=== PATIENT | female | born 1990 | race Caucasian/White ===

== ENCOUNTER → 2016-10-02 | Outpatient (CLI) | payer BC ==
[~2016-10-02] MED LIST: CEPH500C3 PO; DARV PO; LEVO.1 PO
== END ==
LOC: HPND 10:43
PROVIDERS: ATTEND Obstetrics & Gynecology
DX: O99.281 Endocrine, nutritional and metabolic diseases complicating pregnancy, first trimester (principal); Z36 Encounter for antenatal screening of mother; Z3A.12 12 weeks gestation of pregnancy
CPT/HCPCS: 36416; 76813

== ENCOUNTER 2017-04-04 13:59 | Inpatient (IN) | payer BC ==
[2017-04-04] VITALS (11 sets, daily range): BP systolic 126–140; BP diastolic 61–88; PULSE 79–98; RESP 16–18
[~2017-04-04] VITALS: Ht 172.7 cm; Wt 75.0 kg
[2017-04-04] MEDS ORDERED: LACTATED RINGER'S 1000 ML INJ 1,000 ML IV SCH (14:36)
[2017-04-04] MEDS ORDERED: LACTATED RINGER'S 1000 ML INJ 1,000 ML IV PRN (14:36)
[2017-04-04] MEDS ORDERED: ONDANSETRON HCL 4 MG/2 ML VIAL IV PUSH PRN (14:45)
[2017-04-04] MEDS ORDERED: MINERAL OIL 10 ML VIAL TOPICAL PRN (14:45)
[2017-04-04] MEDS ORDERED: SODIUM CHLORID 0.9% 500 ML INJ 500 ML IV PRN (14:45)
[2017-04-04] MEDS ORDERED: LIDOCAINE HCL 1% 50 ML VIAL INFIL PRN (14:45)
[2017-04-04] MEDS ORDERED: LIDOCAINE HCL 1% 50 ML VIAL I-DERMAL PRN (14:45)
[2017-04-04] MEDS ORDERED: OXYTOCIN 30 UNITS-500ML PREMIX 500 ML IV SCH (14:45)
[2017-04-04] MEDS ORDERED: CITRIC ACID-SODIUM CITRATE LIQ 30 ML UDC PO SCH (14:45)
[2017-04-04] MEDS ORDERED: OXYTOCIN 30 UNITS-500ML PREMIX 500 ML IV ONE (14:45)
--- NOTE | 2017-04-04 14:52 | PD ---
HPI Chief Complaint water broke, contractions Date Seen: Apr 04, 2017 Travel History International Travel<30 Days: No Contact w/Intl Traveler<30Days: No Known Affected Area: No History of Present Illness HPI Patient is a 26 y/o at 39/1 weeks gestation that presents to the [facility] ED after her water broke and complains of contractions that are occurring every 2-3 minutes. She states that her water broke around 12:50 AM and she saw clear fluid. She also lost her mucous plug prior to that. Her last ultrasound was on Friday and her baby was about 7 pounds in weight and her down with an anterior placenta. She has not had any problems during this . She desires an epidural. Notably, she is GBS negative. They are having a boy. Weeks Gestation: 39 Para: 0 : 1 History Past Medical History Narrative Medical Hypothyroidism on levothyroxine 150 g daily Obstetric History Obstetric History Past Surgical History Narrative Surgical -Lymph node excision / cat scratch disease -Breast augmentation Family History Narrative Family History Dad had an [place] Social History Alcohol Use: No Tobacco Use: No Substance Abuse: No Allergies-Medications (Allergen,Severity, Reaction): Coded Allergies: No Known Allergies (Verified , 07/13/07) Home Meds Active Scripts Synthroid 100 mcg (Synthroid 100 mcg) 100 Mcg Tab, 125 MCG PO DAILY, #90 0 Refills Prov:HARRISON AGUDELO M.D. R4 09/20/10 Propoxyphene-N/Acetaminophen (Darvocet-N 100) Tab, 1 TAB PO Q6HPRN, #12 0 Refills FOR PAIN Prov:Grayson Sheppard MD 07/26/08 Cephalexin (Keflex) 500 Mg Cap, 500 MG PO QID for 10 Days, 0 Refills Prov:Geoffrey Childress MD 07/13/07 Review of Systems Except as stated in HPI: all other systems reviewed are Neg General / Constitutional: No: Chills Eyes: No: Blurred Vision, Visual changes HENT: No: Headaches Cardiovascular: No: Chest Pain or Discomfort Respiratory: No: Cough, Short of Breath Gastrointestinal: Diarrhea (3 episodes this morning which is unusual), No: Nausea, Vomiting Genitourinary: No: Dysuria, Discharge, Vaginal Bleeding Musculoskeletal: No: Weakness Skin: No Rash Neurologic: No: Weakness Physical Exam Vital Signs Date Time Temp Pulse Resp B/P (MAP) Pulse Ox O2 Delivery O2 Flow Rate FiO2 04/04/17 14:38 92 140/88 (105) Narrative GENERAL: Well-nourished, well-developed patient. SKIN: Warm and dry. HEAD: Normocephalic and atraumatic. EYES: No scleral icterus. No injection or drainage. ENT: No nasal drainage noted. Mucous membranes pink. Airway patent. NECK: Supple, trachea midline. No JVD. CARDIOVASCULAR: Regular rate and rhythm without murmurs, gallops, or rubs. RESPIRATORY: Breath sounds equal bilaterally. No accessory muscle use. ABDOMEN/GI: Abdomen soft, non-tender, bowel sounds present, no rebound, no guarding Gravid to 39 weeks size GENITOURINARY: External Genitalia: intact and normal in appearance Cervix: [] Dilatation: 4cm Effacement: [-] Station: -1 Presentation: cephalic Membranes: ruptured Uterine Contractions: q2-3 mins FHT's: Category: I Baseline: 130 Reactive: yes Variability: Moderate Decels: no decels EXTREMITIES: No cyanosis or edema. NEUROLOGICAL: Awake and alert. Motor and sensory grossly within normal limits. Five out of 5 muscle strength in all muscle groups. Normal speech. Data Data Vital Signs Reviewed: Yes Orders Orders Ob (2e) Additional Admit Info (04/04/17 14:29) Vital Signs (Adult) .ON ADMISSION (04/04/17 14:35) ^ Labor Status (04/04/17 14:35) ^ Non Stress Test (04/04/17 14:35) Admit To Inpatient (04/04/17 ) Vital Signs (Adult) .Per protocol (04/04/17 14:36) Heart (04/04/17 14:36) Amnioinfusion (04/04/17 14:36) Urinary Catheter Management .ONCE (04/04/17 14:36) Diet Liquid (04/04/17 Dinner) Lactated Ringer's 1000 Ml Inj (Lr 1000 M (04/04/17 14:36) Lactated Ringer's 1000 Ml Inj (Lr 1000 M (04/04/17 14:36) Sodium Chlorid 0.9% 500 Ml Inj (Ns 500 M (04/04/17 14:45) Sodium Chlor 0.9% 1000 Ml Inj (Ns 1000 M (04/04/17 14:56) Lidocaine 1% Inj (50 Ml) (Xylocaine 1% I (04/04/17 14:45) Citric Acid-Sodium Citrate Liq (Bicitra (04/04/17 14:45) Ondansetron Inj (Zofran Inj) (04/04/17 14:45) Fentanyl Inj (Fentanyl Inj) (04/04/17 14:45) Fentanyl Inj (Fentanyl Inj) (04/04/17 14:45) Complete Blood Count With Diff (04/04/17 14:36) Hold Clot (04/04/17 14:36) Abo/Rh Blood Type (04/04/17 14:36) Urinalysis - C+S If Indicated (04/04/17 14:36) Drug Screen, Random Urine (04/04/17 14:36) Resp Oxygen Non Rebreathe Mask (04/04/17 ) ^ Epidural / Intrathecal Infus (04/04/17 14:36) Oxytocin 30 Units-500ml Premix (Pitocin (04/04/17 14:45) Lidocaine 1% Inj (50 Ml) (Xylocaine 1% I (04/04/17 14:45) Light Mineral Oil (Muri-Lube Oil) (04/04/17 14:45) Inpatient Certification (04/04/17 ) ^ Non Stress Test (04/04/17 14:36) Response To Medication .Post New Med Administration, Reaction (04/04/17 14:36) ^ Discontinue Medication (04/04/17 14:36) Oxytocin 30 Units-500ml Premix (Pitocin (04/04/17 14:45) Group B Strep: Negative MDM Medical Record Reviewed: Yes Interpretation(s) 26 year old at 39/1 weeks gestation presents in active labor. Spontaneous rupture of membranes, GBS negative Plan 1. 39 weeks gestation -Intrauterine - heart tones reassuring at category 1 -Continue continuous monitoring -Continue routine antepartum care 2. Active labor -Painful contractions every 2-3 minutes -Admit to L&D -Desires an epidural -Pitocin when necessary -Expect vaginal delivery 3. Hypothyroidism -Continue levothyroxine 150 g by mouth daily Diagnosis Diagnosis: Primary Impression: with 39 completed weeks gestation Additional Impression: Uterine contractions during Hetal Arshad MD R2 Apr 04, 2017 14:52
[2017-04-04] MEDS ORDERED: SODIUM CHLOR 0.9% 1000 ML INJ 1,000 ML IV PRN (14:56)
[2017-04-04] MEDS ORDERED: DIPHTH/TETANUS/ACEL PERTUSSIS (BOOSTER) 0.5 ML VIAL/PFS IM ONE (16:00)
[2017-04-04] MEDS ORDERED: fentaNYL 2MCG-BUPIV 0.125% INJ 100 ML ONE (16:10)
[2017-04-04 16:12] LABS: BLOOD, URINE LARGE (NEG); COMMENT (UR) CULTURE INDICATED; CULTURE IF INDICATED CULTURE INDICATED; GLUCOSE,URINE NEG (NEG); KETONE, URINE 10 mg/dL (NEG); MUCUS URINE FEW /lpf (OCC); NITRITE,URINE NEG (NEG); PH, URINE 5.5 (5.0-8.5); SQUAMOUS EPITHELIAL CELL URINE 28 /hpf (0-5); URINE COLOR YELLOW (YELLW/STRAW)
[2017-04-04 16:24] LABS: AUTOMATED NEUTROPHIL # 14.7 TH/MM3 (1.8-7.7); BASOPHIL % 0.2 % (0.0-2.0); EOSINOPHIL # 0.1 TH/MM3 (0-0.4); EOSINOPHIL % 0.5 % (0.0-4.0); HEMATOCRIT 39.5 % (35.0-46.0); HEMO FLAGS DIFF FINAL; LYMPH % 6.6 % (9.0-44.0); LYMPHOCYTE # 1.1 TH/MM3 (1.0-4.8); MEAN CELL VOLUME 91.2 FL (80.0-100.0); MEAN CORPUSCULAR HEMOGLOBIN 30.8 PG (27.0-34.0); MEAN CORPUSCULAR HGB CONC 33.8 % (32.0-36.0); MONO % 6.5 % (0.0-8.0); NEUT % 86.2 % (16.0-70.0); PLATELET COUNT 273 TH/MM3 (150-450); RED BLOOD COUNT 4.33 MIL/MM3 (4.00-5.30); RED CELL DISTRIBUTION WIDTH 12.8 % (11.6-17.2)
[2017-04-04] MEDS ORDERED: LIDOCAINE 2%/EPINEPHrine PF 1:200,000 20ML SDV ONE (20:42)
[2017-04-04] MEDS ORDERED: LIDOCAINE HCL 1.5% PF SOLN 20 ML AMP ONE (20:47)
--- NOTE | 2017-04-04 23:56 | PD.OB.DELI ---
Weeks gestation: 39 Gest age assessed date: Apr 04, 2017 Gest age assessed time: 02:30 Pt started active labor?: Yes Active labor start date: Apr 04, 2017 Active labor start time: 02:30 Medical induction of labor?: No Artificial rupture of membrane: No Anesthesia: Epidural Episiotomy: None Vaginal Delivery: Normal Presentation: Occiput anterior Nuchal Cord: None Delayed cord clamping (45 sec): Yes : Male, Single Delivery date: Apr 04, 2017 Delivery time: 23:31 One Minute : 9 Five Minute : 9 Placenta: Spontaneous delivery, Intact, 3 vessel cord Additional Information left periurethral laceration repaired with 3-0 chromic in usual fashion Eliza Hopper MD Apr 04, 2017 23:55
[2017-04-05] VITALS (7 sets, daily range): BP systolic 118–155; BP diastolic 67–82; PULSE 80–108; RESP 16–18; TEMP 97.8–98.5; O2SAT 98
[2017-04-05] MEDS ORDERED: oxyCODONE/ACETAMINOPHEN 5 MG/325 MG TAB PO PRN ×2
[2017-04-05] MEDS ORDERED: OXYTOCIN 30 UNITS-500ML PREMIX 500 ML IV SCH
[2017-04-05] MEDS ORDERED: SODIUM CHLORIDE 0.9% FLUSH 10 ML FLUSH IV FLUSH PRN
[2017-04-05] MEDS ORDERED: ALUMINUM/MAGNESIUM/SIMETH 30 ML CUP PO PRN
[2017-04-05] MEDS ORDERED: ZOLPIDEM TARTRATE 5 MG TAB PO PRN
[2017-04-05] MEDS ORDERED: ONDANSETRON ODT 4 MG TAB PO PRN
[2017-04-05] MEDS ORDERED: OXYTOCIN 10 UNIT/ML AMP XX PRN
[2017-04-05] MEDS ORDERED: OXYTOCIN 30 UNITS-500ML PREMIX 500 ML IV ONE
[2017-04-05] MEDS ORDERED: DOCUSATE SODIUM 50 MG/SENNA 8.6 MG TAB PO PRN
[2017-04-05] MEDS ORDERED: BENZOCAINE 20% TOPICAL SPRAY 60 ML CAN TOPICAL PRN
[2017-04-05] MEDS ORDERED: NO SYSTEM NARCOTICS PRN (01:45)
[2017-04-05] MEDS ORDERED: ePHEDrine/NS 25 MG/5 ML SYRINGE IV PUSH PRN (01:45)
[2017-04-05] MEDS ORDERED: DO NOT ADMINISTER ANTICOAGULANTS PRN (01:45)
[2017-04-05] MEDS ORDERED: fentaNYL 2MCG-BUPIV 0.125% 100 ML EPIDURAL SCH (01:45)
[2017-04-05] MEDS: WITCH HAZEL 50%/GLYCERIN 12.5% 40 PAD JAR TOPICAL PRN ×2 (02:31→17:46)
[2017-04-05] MEDS: IBUPROFEN 800 MG TAB PO PRN ×3 (02:34→18:31)
[2017-04-05] MEDS: ACETAMINOPHEN 325 MG TAB PO PRN ×2 (13:34→18:31)
--- NOTE | 2017-04-05 13:36 | HHI.OB ---
Subjective Post Day: 1 Remarks pain controlled, mod lochia, +void/flatus, barby po Objective Vitals/I&O Vital Signs Date Time Temp Pulse Resp B/P (MAP) Pulse Ox O2 Delivery O2 Flow Rate FiO2 04/05/17 08:00 97.8 91 16 120/72 (88) 98 04/05/17 02:10 89 135/81 (99) 04/05/17 02:10 98.5 04/05/17 02:10 18 04/05/17 01:01 102 118/74 (89) 04/05/17 00:33 108 155/82 (106) 04/05/17 00:23 18 04/05/17 00:10 18 04/04/17 23:40 18 04/04/17 22:15 18 04/04/17 22:00 98 137/78 (97) 04/04/17 21:34 16 04/04/17 21:15 16 04/04/17 21:00 79 126/61 (82) 04/04/17 20:35 18 04/04/17 20:02 18 04/04/17 20:00 92 138/83 (101) 04/04/17 19:45 18 04/04/17 14:38 92 140/88 (105) Objective Remarks GENERAL: Well-nourished, well-developed patient. CARDIOVASCULAR: Regular rate and rhythm without murmurs, gallops, or rubs. RESPIRATORY: Breath sounds equal bilaterally. No accessory muscle use. ABDOMEN/GI: Abdomen soft, non-tender. Fundus: Firm, non-tender at umbilicus. GENITOURINARY: Light to moderate bleeding. EXTREMITIES: No cyanosis or edema, non-tender, without signs of DVT. Medications and IVs Current Medications Medications (Trade) Dose Ordered Sig/Marilu Route Start Time Stop Time Status Last Admin (Pitocin Inj) 20 units UNSCH X1 PRN XX 04/05/17 00:00 04/05/17 23:59 (NS Flush) 2 ml BID IV FLUSH 04/05/17 09:00 (NS Flush) 2 ml UNSCH PRN IV FLUSH 04/05/17 00:00 (Tylenol) 650 mg Q4H PRN PO 04/05/17 00:00 (Motrin) 800 mg Q8H PRN PO 04/05/17 00:00 04/05/17 10:44 (Percocet 5-325 Mg) 1 tab Q4H PRN PO 04/05/17 00:00 (Percocet 5-325 Mg) 2 tab Q4H PRN PO 04/05/17 00:00 (Americaine 20% Top Spr) 1 spray Q4H PRN TOPICAL 04/05/17 00:00 04/05/17 02:31 (Tucks Pads) 1 applic QID PRN TOPICAL 04/05/17 00:00 04/05/17 02:31 (Martina-Colace) 2 tab Q12H PRN PO 04/05/17 00:00 04/05/17 02:31 (Ambien) 5 mg HS PRN PO 04/05/17 00:00 (Mag-Al Plus Susp Liq) 15 ml Q8H PRN PO 04/05/17 00:00 (Zofran Odt) 4 mg Q6H PRN PO 04/05/17 00:00 Miscellaneous Information No systemic narcotics to be given except... UNSCH PRN .XX 04/05/17 01:45 04/06/17 01:44 Miscellaneous Information DO NOT ADMINISTER ANY ANTICOAGUL... UNSCH PRN .XX 04/05/17 01:45 04/06/17 01:44 Fentanyl/ Bupivacaine HCl 100 ml @ 0 mls/hr TITRATE EPIDURAL 04/05/17 01:45 (ePHEDrine/NS 25 MG/5 ML SYR) 10 mg UNSCH PRN IV PUSH 04/05/17 01:45 04/06/17 01:44 Assessment/Plan Problem List: (1) Spontaneous vaginal delivery ICD Codes: O80 - Encounter for full-term uncomplicated delivery Plan: routine pp care Eliza Hopper MD Apr 05, 2017 13:36
[2017-04-05] MEDS ORDERED: IBUP1TAB7 PO (13:39)
[2017-04-05] MEDS ORDERED: OXYC1TAB63 PO (13:39)
--- NOTE | 2017-04-05 13:41 | HHI.DCPOC ---
Discharge Care Plan Diagnosis: (1) Spontaneous vaginal delivery Your Health Problems Are: Vaginal delivery Report Symptoms to Your Doctor -Temperature above 100.5 degrees -Redness, of incision or excessive or foul smelling drainage -Unusual pain or calf pain -Increased vaginal bleeding -Painful or difficulty urinating -Feelings of extreme sadness or anxiety after 2 weeks Goals to Promote Your Health * To prevent worsening of your condition and complications * To maintain your health at the optimal level Directions to Meet Your Goals Take your medications as prescribed Follow your dietary instruction Follow activity as directed Ensure plenty of rest for recovery Drink fluids for hydration Keep your appointments as scheduled Take your immunizations and boosters as scheduled If your symptoms worsen call your PCP, if no PCP go to Urgent Care Center or Emergency Room Smoking is Dangerous to Your Health. Avoid second hand smoke Call the 24-hour crisis hotline for domestic abuse at Eliza Hopper MD Apr 05, 2017 13:41
[2017-04-05] MEDS: SODIUM CHLORIDE 0.9% FLUSH 10 ML FLUSH IV FLUSH SCH (20:32)
[2017-04-06] MEDS: ACETAMINOPHEN 325 MG TAB PO PRN (00:26)
[2017-04-06] MEDS: IBUPROFEN 800 MG TAB PO PRN (04:27)
[2017-04-06 08:35] VITALS: BP 121/76; PULSE 69; RESP 17; TEMP 98
[2017-04-06] MEDS: SODIUM CHLORIDE 0.9% FLUSH 10 ML FLUSH IV FLUSH SCH (09:00)
== END 2017-04-06 11:51 | disposition home or self-care (01) | DRG 775 ==
LOC: HOBED 13:59 → H2EA 14:31 → H1EA 04-05 02:04
PROVIDERS: ADMIT Obstetrics & Gynecology; ATTEND Obstetrics & Gynecology
PROC: 10E0XZZ Delivery of Products of Conception, External Approach (ICD-10-PCS; principal; 2017-04-04)
PROC: 0UQMXZZ Repair Vulva, External Approach (ICD-10-PCS; 2017-04-04)
PROC: 3E0R3BZ Introduction of Anesthetic Agent into Spinal Canal, Percutaneous Approach (ICD-10-PCS; 2017-04-04)
PROC: 00HU33Z Insertion of Infusion Device into Spinal Canal, Percutaneous Approach (ICD-10-PCS; 2017-04-04)
DX: O99.284 Endocrine, nutritional and metabolic diseases complicating childbirth (principal); E03.9 Hypothyroidism, unspecified; O71.82 Other specified trauma to perineum and vulva; Z97.8 Presence of other specified devices; Z37.0 Single live birth; Z3A.39 39 weeks gestation of pregnancy
CPT/HCPCS: 59025; 80307; 81001; 85025; 86900; 86901; 87086; J2590; J7120